=== PATIENT | female | born 1965 | race Two or more races ===

== ENCOUNTER 2018-05-09 10:39 | Day surgery (SDC) | payer OTHER ==
[~2018-05-09 10:39] MED LIST: LEXAPRO5 MG PO
== END 2018-05-09 17:00 | disposition home or self-care (01) ==
LOC: CIR.AMB 10:39
DX: M77.12 Lateral epicondylitis, left elbow (principal); S56.512A Strain of other extensor muscle, fascia and tendon at forearm level, left arm, initial encounter

== ENCOUNTER 2020-07-08 10:44 | Day surgery (SDC) | payer OTHER | END 2020-07-08 17:10 | disposition home or self-care (01) | LOC: CIR.AMB 10:44 | PROVIDERS: ATTEND Orthopaedic Surgery | DX: M77.11 Lateral epicondylitis, right elbow (principal); Z20.822 Contact with and (suspected) exposure to COVID-19 ==